=== PATIENT | male | born 1945 | race Caucasian/White ===

== ENCOUNTER 2020-06-20 14:36 | Outpatient (CLI) | payer MEDICARE ==
--- NOTE | 2020-06-20 17:02 | RAD ---
TWO VIEWS LEFT HIP: Date: 06-20-2020 PROVIDED CLINICAL HISTORY: Left hip pain. FINDINGS: There is no evidence for fracture or other acute osseous abnormality. Alignment appears anatomic. Lef t hip joint space appears preserved. No lytic or blastic bony lesions are seen. IMPRESSION: No evidence for an acute osseous abnormality or significant arthropathy. POS: OFF
== END 2020-06-20 14:37 | disposition home or self-care (01) ==
LOC: BICRAD 14:36
PROVIDERS: ATTEND Family Medicine
DX: M25.552 Pain in left hip (principal)

== ENCOUNTER 2021-09-17 09:22 | Outpatient (CLI) | payer MEDICARE, OTHER | END 2021-09-17 09:23 | disposition home or self-care (01) | LOC: BICULT 09:22 | PROVIDERS: ATTEND Family Medicine | DX: Z13.6 Encounter for screening for cardiovascular disorders (principal) | CPT/HCPCS: 76775 ==